=== PATIENT | male | born 1995 | race Caucasian/White ===

== ENCOUNTER 2024-10-25 02:45 | Emergency (ER) | payer MEDICAID, SELFPAY ==
[2024-10-25 02:46] VITALS: BP 112/79; PULSE 76; RESP 18; TEMP 36.6; O2SAT 98
--- NOTE | 2024-10-25 02:52 | EX.ED.UPPERE ---
HPI History of Present Illness Chief Complaint: Upper Extremity Injury Informant: patient Narrative Narrative: [id number] healthy 29-year-old states he was drinking this past evening, and he woke up 15 minutes ago at 2:30 AM with severe pain in his right wrist. He states that he was told by friends that he fell and injured it but he does not remember. He denies having headache or numbness or tingling or other pain or injury. [facility] Medical History Seizures Home Medications ?Medication ?Instructions ?Recorded ?Last Taken ?Type NK 10/25/24 Unknown History Allergy/AdvReac Type Severity Reaction Status Date / Time No Known Allergies Allergy Verified 10/25/24 02:46 Family History no significant family his Surgical History (Updated 10/25/24 @ 02:48 by Navin Herbert) Hx of appendectomy Social History Smoking Status: Current every day smoker tobacco type: cigarettes ROS ROS ED Constitutional Constitutional ED: Denies chills or fever(s) Eyes Eyes: Denies change in vision Gastrointestinal Gastrointestinal: Denies nausea or vomiting Musculoskeletal Musculoskeletal: Reports extremity pain; Denies neck pain Integumentary Denies Abrasions, rash or wounds Neurologic Neurologic: Denies headache(s), paresthesias or weakness EXAM Physical Exam Const Vital Signs: 10/25/24 02:46 Temperature 97.8 F Temperature Source Oral Pulse Rate 76 Respiratory Rate 18 Blood Pressure 112/79 Blood Pressure Mean 90 Pulse Ox 98 Oxygen Delivery Method Room Air Positive well nourished and well developed General Appearance ED: well developed and NAD HEENT normocephalic and atraumatic Neck full ROM and supple General: Negative for tenderness Back/Spine normal ROM and normal to inspection Extremity Extremity Narrative: Limited range of motion of the right wrist due to pain. There are no deformities. He has some mild tenderness to distal radius but the majority of the tenderness is in the scaphoid/snuffbox, and he is tender with axial loading of the thumb although he can move the thumb without difficulty otherwise. All the fingers ranged without difficulty, and the elbow is nontender and ranges without difficulty. Neuro oriented x3, no focal motor deficits and no sensory deficits noted Sensorium / Orientation: alert Psych mental status grossly normal and thought process normal Skin no wounds Rashes: no rashes MDM MDM MDM Narrative Medical decision making narrative: Obtained 4 view right wrist series, on my interpretation including scaphoid view, negative for acute fracture. However, if injury occurred acutely, this is not sensitive enough to completely rule out a possible scaphoid fracture. He is having significant tenderness in this area along with axial loading of the thumb so placing him in a thumb spica splint given him a dose of naproxen and will have him follow-up with orthopedics in a week or so. Discharge Plan Triage Chief Complaint: Upper Extremity Injury ED Provider: Masoud Connors Dx/Rx/DC Orders Clinical Impression: Injury of right wrist Instructions: ED Possible Wrist Fracture, ED Wrist Sprain Prescriptions: No Action NK Referrals: Roly Sherman MD [Med Staff - Active Staff] - 1 Week Print Language: Malay Disposition Disposition: Home, Self Care
--- NOTE | 2024-10-25 03:00 | RAD_ITS ---
PROCEDURE: WRIST MIN 3 VIEWS 10/25/2024 REASON FOR EXAM: PAIN, POSS INJURY TECHNIQUE: 4 view(s) of the right wrist COMPARISON: None. FINDINGS: No acute fracture or dislocation is identified. Joint spacing is preserved. Carpal bones are intact. Visualized soft tissues are unremarkable. RAD/Wrist min 3 Views IMPRESSION: No acute fracture. Reading [facility]
[2024-10-25 03:26] VITALS: BP 103/67; PULSE 67; RESP 16; TEMP 36.7; O2SAT 98
[2024-10-25] MEDS: Naproxen 500 MG Tablet PO (03:31)
== END 2024-10-25 03:33 | disposition home or self-care (01) ==
LOC: ED 03:32
PROVIDERS: Emergency Provider Emergency Medicine; Visit Provider Emergency Medicine
DX: S69.91XA Unspecified injury of right wrist, hand and finger(s), initial encounter (principal); W19.XXXA Unspecified fall, initial encounter; F17.210 Nicotine dependence, cigarettes, uncomplicated
CPT/HCPCS: 73110; 99283